=== PATIENT | female | born 2005 | race Caucasian/White ===

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

== ENCOUNTER 2024-02-18 00:50 | Inpatient (IN) | payer MEDICAID, SELFPAY ==
[2024-02-17 23:23] VITALS: BP 119/77; PULSE 91; TEMP 36.6
[2024-02-17 23:34] VITALS: BMI 35.7
[2024-02-17 23:40] VITALS: BP 110/67; PULSE 90
[2024-02-17 23:50] LABS: Nitrazine Paper, PH Positive
[2024-02-18] VITALS (46 sets, daily range): BP systolic 94–136; BP diastolic 46–96; PULSE 72–117; RESP 16; TEMP 36.5–37.1; O2SAT 97–100
[2024-02-18] MEDS: miSOPROStol 100 mcg tablet 25 MCG SUBLINGUAL (00:16)
[2024-02-18 00:41] LABS: Basophils % 0.2 %; Eosinophils # 0.2 10^3/uL (0.0-0.8); Eosinophils % 1.6 %; Hematocrit 30.5 % (36-47); Lymphocytes % 22.1 %; Mean Corpuscular HGB Conc 32.1 g/dL (30-55); Mean Corpuscular Hemoglobin 28.1 pg (27-33); Mean Corpuscular Volume 87.4 fl (85-98); Monocytes # 0.7 10^3/uL (0.2-0.9); Neutrophils # 6.17 10^3/uL (1.8-8.0); Neutrophils % 66.9 %; Nucleated Red Blood Cells % 0 %; Platelet Count 171 10^3/cmm (157-399); Red Blood Count 3.49 10^6/uL (3.85-5.65); Red Cell Distribution Width 13.4 % (12.1-15.1); White Blood Count 9.23 10^3/uL (4.5-13.0)
[2024-02-18] MEDS: lactated ringers 1,000 ML 999 ML IV (02:25)
--- NOTE | 2024-02-18 03:35 | P.ANESUD_ITS ---
Pre-Anesthetic Update Pre-Anesthetic Assessment: Date of Surgery/Procedure: 02/18/24 Preop Ashlyn gnosis: intrauterine Proposed Procedure: labor epidural Any changes to Pre-Anesthetic Assessment?: No Last Intake: 2230 Labs Last 48hrs: Short CBC 02/18/24 Range/Units 00:01 WBC 9.23 (4.5-13.0) 10^3/ uL Hgb 9.80 L (12.4-14.8) g/dL Hct 30.5 L (36-47) % MCV 87.4 (85-98) fl Plt Count 171 (157-399) 10^3/c mm Neut % (Auto) 66.9 % Neut # (Auto) 6.17 (1.8-8.0) 10^3/u L Blood Bank 02/18/24 00:01 Blood Type O Positive Rho(D) Type Rh positive Antibody Screen Negative Vitals: Temperature 97.9 F 02/17/24 23:23 Temperature Source Temporal Artery S can 02/17/24 23:23 Pulse Rate 72 02/18/24 03:51 Blood Pressure 111/56 02/18/24 03:51 Pulse Oximetry 100 02/18/24 03:49 Exam: Pre-Anes Outpt Exam: alert, oriented x 3 and regular rate & rhythm Cardiac Studies: No Data to Display Anesthesia Procedures Epidural: Time Out Performed: Yes Consents Signed: Procedure Consent Consent: requested by attending/covering physician, from patient, risks and benefits reviewed and patient agrees to proceed Lumbar Level: L4-L5 Epidural position: sitting Epidural procedure: sterile prep of area, 1% lidocaine to numb the area, 18 g needle, negative for paresthesia passed, neg for paresthesia, test dose given, 1.5% xylocaine 1:200k epi, 0.2% Ropivacaine bolus ml (5), placed PCEA, no systemic response, sterile dressing applied, L.U.D. no apparent complications and 0.2% Ropiavacaine @ mls/hr (13) Additional Comments: JOHN at 6cm, catheter easily threaded to 5cm in the space. Pt educated on CRAFT WORKER and reporting decreased pain with contractions.
[2024-02-18] MEDS: ROPivacaine syringe 100 MG/50 ML SYRINGE 10 MG EPIDURAL (03:46)
[2024-02-18] MEDS: dextrose 5%-lactated ringers 1,000 ML 125 ML IV (04:38)
[2024-02-18] MEDS: oxytocin 30 UNIT/500 ML BAG 600 UNIT IV (05:58)
--- NOTE | 2024-02-18 06:14 | PM.OPHPUD ---
Labor & Delivery H&P Update Date of Procedure: February 18, 2024 Date H&P Performed: 02/08/24 Changes to previous documentation: Spontaneous rupture membranes. Admission Diagnosis: 18-year-old 3 para 0-0-2-0 at 39 weeks and 2 days estimated gestational age Preop diagnosis: intrauterine Planned procedure: Vaginal delivery Other information: The patient is a 18-year-old woman who had spontaneous rupture membranes shortly before arriving at the hospital. Her prior to that point had been relatively unremarkable. She was GBS negative. She passed her glucose screen. Her blood type is O+. Her antibody screen is negative. She is rubella immune. The remainder of her infectious disease profile is within normal limits. Related Problem List Diagnoses (1) 39 weeks gestation of : (2) Spontaneous rupture of membranes: A&P Assessment and plan (1) 39 weeks gestation of : I anticipate routine labor and spontaneous vaginal delivery. Status: Acute (2) Spontaneous rupture of membranes: Status: Acute
--- NOTE | 2024-02-18 06:19 | PM.DELIVERY ---
Delivery Note: Date of delivery: February 18, 2024 Pre-delivery diagnoses: 18-year-old 3 para 0-0-2-0 at 39 weeks estimated gestational age with spontaneous rupture membranes Post-delivery diagnoses: Status post spontaneous vaginal delivery Procedure: Spontaneous vaginal delivery Delivering Physician: Ankur Simmons Estimated blood loss (mL): 75 Pre-Delivery Course: The patient presented to the hospital with spontaneous rupture membranes that occurred just before arriving at the hospital. Total time of rupture membranes was around 7 hours prior to delivery. History History History 3 Term 1 0 Miscarriages/Ectopic 2 Living Children 1 A&P Assessment and plan (1) Spontaneous vaginal delivery: I anticipate routine care. (2) 39 weeks gestation of : (3) Spontaneous rupture of membranes: Coding Level of Care Code Acute Code for Chg Fwd Diagnoses Spontaneous vaginal delivery O80 39 weeks gestation of Z3A.39 Spontaneous rupture of membranes
[2024-02-18] MEDS: PRENATAL VIT NO.130/IRON/FOLIC 1 EACH TABLET PO (10:01)
[2024-02-18] MEDS: ibuprofen 800 mg tablet PO ×3 (10:01→20:14)
[2024-02-18] MEDS: docusate sodium 100 mg Capsule PO ×2 (10:01→20:14)
[2024-02-18] MEDS: lanolin oint 7 gm 1 APPLIC TOPICAL (20:14)
[2024-02-18 21:06] LABS: Hematocrit 27.9 % (36-47); Mean Corpuscular HGB Conc 31.9 g/dL (30-55); Mean Corpuscular Hemoglobin 28.1 pg (27-33); Mean Platelet Volume 13.2 fL (7.4-10.4); Platelet Count 168 10^3/cmm (157-399); Red Blood Count 3.17 10^6/uL (3.85-5.65); Red Cell Distribution Width 13.6 % (12.1-15.1); White Blood Count 12.21 10^3/uL (4.5-13.0)
[2024-02-19] MEDS: HYDROcodone-acetaminophen 5-325 mg Tablet PO (03:25)
[2024-02-19 03:30] VITALS: BP 107/72; PULSE 94; RESP 16; TEMP 36.8; O2SAT 98
[2024-02-19] MEDS: ibuprofen 800 mg tablet PO (08:23)
[2024-02-19] MEDS: docusate sodium 100 mg Capsule PO (08:23)
[2024-02-19] MEDS: PRENATAL VIT NO.130/IRON/FOLIC 1 EACH TABLET PO (08:23)
[2024-02-19 08:34] VITALS: BP 116/70; PULSE 98; RESP 15; TEMP 36.6; TEMP 36.7; O2SAT 98
--- NOTE | 2024-02-19 09:46 | PM.OBGYDC ---
Discharge Providers CREPE LAMINATOR OPERATOR Date of Admission: 02/18/24 00:50 Date of Discharge: 02/19/24 Attending Provider at Admission: Ankur Simmons MD Attending Provider at Discharge: Ankur Simmons MD Primary Care Provider: ZION Scott Diagnoses at Discharge Discharge Diagnosis (1) Spontaneous vaginal delivery: Status: Acute (2) 39 weeks gestation of : Status: Acute (3) Spontaneous rupture of membranes: Status: Acute Reason for Visit Reason for Visit: Possible ROM at 2230 Hospital Course Hospital Course The patient presented to the hospital with spontaneous rupture membranes. She was placed on Cytotec 25 mcg x 1. An epidural was placed. She progressed to complete and had an unremarkable vaginal delivery. Her course was also unremarkable. Her bleeding was within normal limits. Her pain was well-controlled. She breast-fed well. Information Peripartum Data: Delivery Method: Vaginal Physical Exam Narrative: The patient is alert. She appears comfortable. Her heart has a regular rate and rhythm with no murmurs appreciated. Lungs are clear to auscultation bilaterally. Her fundus is firm and below the umbilicus. Urinary Catheter Management: Joiner Latex: Cath Placed During This Visit: yes Urinary Catheter Date of Insertion: 02/18/24 Urinary Catheter Time of Insertion: 04:13 History History History 3 Term 1 0 Miscarriages/Ectopic 2 Living Children 1 Discharge Data Studies Completed and Pending Laboratory Results WBC 12.21 10^3/uL (4.5-13.0) 02/18/24 19:25 RBC 3.17 10^6/uL (3.85-5.65) L 02/18/24 19:25 Hgb 8.90 g/dL (12.4-14.8) L 02/18/24 19:25 Hct 27.9 % (36-47) L 02/18/24 19:25 MCV 88.0 fl (85-98) 02/18/24 19:25 MCH 28.1 pg (27-33) 02/18/24 19:25 MCHC 31.9 g/dL (30-55) 02/18/24 19:25 RDW 13.6 % (12.1-15.1) 02/18/24 19:25 Plt Count 168 10^3/cmm (157-399) 02/18/24 19:25 MPV 13.2 fL (7.4-10.4) H 02/18/24 19:25 Neut % (Auto) 66.9 % 02/18/24 00:01 Lymph % (Auto) 22.1 % 02/18/24 00:01 [place] % (Auto) 8.0 % 02/18/24 00:01 Eos % (Auto) 1.6 % 02/18/24 00:01 Baso % (Auto) 0.2 % 02/18/24 00:01 Neut # (Auto) 6.17 10^3/uL (1.8-8.0) 02/18/24 00:01 Lymph # (Auto) 2.0 10^3/uL (1.5-6.5) 02/18/24 00:01 [place] # (Auto) 0.7 10^3/uL (0.2-0.9) 02/18/24 00:01 Eos # (Auto) 0.2 10^3/uL (0.0-0.8) 02/18/24 00:01 Baso # (Auto) 0.0 10^3/uL (0.0-0.1) 02/18/24 00:01 Nucleated RBC % (auto) 0 % 02/18/24 00:01 Nucleated RBCs # 0.0 /100WBC 02/18/24 00:01 Fluid pH (paper) Positive H 02/17/24 23:25 Blood Type O Positive 02/18/24 00:01 Rho(D) Type Rh positive 02/18/24 00:01 Antibody Screen Negative 02/18/24 00:01 Vitals Last Vital Signs Temp 98.0 F 02/19/24 08:34 Pulse 98 02/19/24 08:34 Resp 15 02/19/24 08:34 BP 116/70 02/19/24 08:34 Pulse Ox 98 02/19/24 08:34 O2 Del Method Room Air 02/19/24 08:34 Results Labs OB ([facility]): Obstetrics US 06/01/22 Blood Type O Positive 02/18/24 Antibody Screen Negative 02/18/24 Hct 27.9 % (36-47) L 02/18/24 Hgb 8.90 g/dL (12.4-14.8) L 02/18/24 Rho(D) Type Rh positive 02/18/24 Plt Count 168 10^3/cmm (157-399) 02/18/24 TSH 2.63 uIU/mL (0.27-4.20) 10/26/22 FSH 5.9 mIU/mL 10/26/22 Ser , Semi-Qnt 1468.00 mIU/mL 06/16/23 Prolactin 10.37 ng/mL (4.8-23.3) 10/26/22 Discharge Plan Discharge Patient Disposition: Home Condition: Stable Prescriptions: New ibuprofen 800 mg Tablet 800 mg PO TID Qty: 45 0RF Vitamin 27 mg iron- 800 mcg Tablet 1 tab PO DAILY Qty: 90 0RF Discharge Orders: Discharge Order (Routine); Ordered 02/19/24 Ordered By: Ankur Simmons Referrals: Keira Alanis MD [Physician] - 6 Weeks Discharge Diet: Usual diet Discharge Activity: Limit activity as instructed Patient Instructions: Depression (DC), Opioid Safety (DC), Preeclampsia and Eclampsia After Delivery (GEN), Hemorrhage (DC), OB Discharge Report, OB Food/Drug Interaction Guide, OB Care at Home, Opioid Safety, OB Vaginal Deliveries, Abnormal Bleeding Discharge Attestations CREPE LAMINATOR OPERATOR Time Spent in Discharge Care*: less than 30 min Coding Level of Care Code Acute Code for Chg Fwd Diagnoses Spontaneous vaginal delivery O80 39 weeks gestation of Z3A.39 Spontaneous rupture of membranes
[2024-02-19 12:07] VITALS: BP 140/90; PULSE 102; RESP 17; TEMP 36.6; O2SAT 97
--- NOTE | 2024-02-19 14:26 | ANE.PACU2 ---
Inpatient post-anesthesia follow up: Airway intact: Yes Vital signs: Temperature 98 F Pulse Rate 102 Respiratory Rate 17 Blood Pressure 140/90 Pulse Oximetry 97 Oxygen Delivery Me thod Room Air Oxygen Flow Rate Fraction of Inspir ed Oxygen Hydration adequate: Yes Nausea and vomiting: No Pain level: 1 Mental status: Baseline Epidural Start/End: Epidural Start Date: 02/18/24 Epidural Start Time: 03:30 Epidural End Date: 02/18/24 Epidural End Time: 10:00
== END 2024-02-19 12:30 | disposition home or self-care (01) | DRG 807 ==
LOC: OPOB 00:50 → OBGYN 00:50
PROVIDERS: Absent Provider Family Medicine; Admitting Provider Family Medicine; PCP Nurse Practitioner Family; Visit Provider Family Medicine
DX: O80 Encounter for full-term uncomplicated delivery (principal); Z37.0 Single live birth; Z3A.39 39 weeks gestation of pregnancy
CPT/HCPCS: 36415; 51702; 59025; 59409; 83986; 85025; 85027; 86850; 86900; 99211; J2590; J2795; J7120; J7121

== ENCOUNTER 2024-03-22 03:30 | Emergency (ER) | payer MEDICAID, SELFPAY ==
[2024-03-22 03:32] VITALS: BP 123/76; PULSE 69; RESP 18; TEMP 36.8; O2SAT 99; BMI 30.7
--- NOTE | 2024-03-22 03:32 | ECG_ITS ---
[facility] Test Date: 2024-03-22 Pat Name: Susanne Franklin Department: Room: Gender: Female Proposal Editor: : 2005 Requested By: Walter Perez Order Number: [id number] Andrea MD: Ladarius Dior M.D. Measurements Intervals [place] Rate: 57 P: 42 IL: 186 QRS: 75 QRSD: 80 T: 70 QT: 368 QTc: 359 Interpretive Statements SINUS BRADYCARDIA WITH SINUS ARRHYTHMIA POSSIBLE RIGHT VENTRICULAR CONDUCTION DELAY [RSR (QR) IN V1/V2] No previous ECG available for comparison Electronically Signed On 03-22-2024 22:21:55 CDT by Ladarius Dior M.D. [email or web address]
--- NOTE | 2024-03-22 03:40 | XRR_ITS ---
PROCEDURE INFORMATION: Exam: XR Chest Exam date and time: 03/22/2024 3:48 AM Age: 18 years old Clinical indication: Angina; Additional info: Chest pain TECHNIQUE: Imaging protocol: Radiologic exam of the chest. Views: 1 view. COMPARISON: CR XR acute abdomen series [id number] 04/12/2018 10:56 AM FINDINGS: Lungs: Unremarkable. No consolidation. Pleural spaces: Unremarkable. No pleural effusion. No pneumothorax. Heart/Mediastinum: Unremarkable. No cardiomegaly. Bones/joints: Unremarkable. XR/XR chest 1V portable [id number] IMPRESSION: No acute findings.
--- NOTE | 2024-03-22 03:50 | ED_ITS ---
HPI - Chest Pain 2 General: Chief Complaint: Chest Pain Stated Complaint: cp and back pain History of Present Illness: Patient presents to the ER for evaluation of low substernal chest pain/epigastric pain. Started about 1:00 this morning. Patient is currently rating it 9 out of 10. She did not take anything for the pain, she denies any nausea vomiting shortness of breath diaphoresis. Patient did not give approximately 1 month ago. Denies any trauma or injury. Review of Systems 2 General: Reports: 10 or more systems reviewed and unremarkable except in HPI and below PFSH ED 2 PFSH: Medical History No pertinent past medical history Neg hx: HTN, DM, Thyroid, DVT/PE PCP: None Surgical History No pertinent past surgical history Family History Father Hypertension Family/Other Thyroid disease Maternal side Denies family history of Colon cancer Ovarian cancer Diabetes Breast cancer Cancer Uterine cancer Stroke Physical Exam 2 Const: COMMON NORMALS: no acute distress, average body habitus, patient oriented x3, no limitations, healthy appearing, alert and well nourished HENMT: COMMON NORMALS: normocephalic, atraumatic, hearing grossly normal bilaterally, external ears normal, Normal external nose present and moist oral mucous membranes HEAD & SCALP: normocephalic and atraumatic NOSE: Normal external nose present EXTERNAL EAR: Yes external ears normal Neck/C-Spine: COMMON NORMALS: no JVD Chest: COMMONS NORMALS: normal inspection of the chest and normal palpation of entire chest wall Resp: COMMON NORMALS: normal respiratory effort, No retractions, No use of accessory muscles and clear to auscultation bilaterally AUSCULTATION: clear to auscultation bilaterally Cardio: COMMON NORMALS: no JVD, regular rate, regular rhythm, S1 normal heart sound present, S2 normal heart sound present, No gallops present (Cardio), No clicks present (Cardio), No murmurs present (Cardio) and No rub (Cardio) R ATE: regular rate RHYTHM: regular rhythm HEART SOUNDS: S1 normal heart sound present and S2 normal heart sound present GI: COMMON NORMALS: Normal to inspection, nondistended, normoactive bowel sounds present, Soft to palpation, No hepatosplenomegaly present and no masses; negative for non-tender (Tender over epigastric region reproduces pain) P ALPATION: Yes Soft to palpation and Yes No hepatosplenomegaly present Neuro: COMMON NORMALS: patient oriented x3 SENSORIUM/ORIENTATION: Yes alert Course 2 Vital Signs: Vital signs: Vital Signs Temperature 98.2 F 03/22/24 03:32 Pulse Rate 65 03/22/24 04:46 Respiratory Rate 21 H 03/22/24 04:46 Blood Pressure 105/66 03/22/24 04:46 Pulse Oximetry 98 03/22/24 04:46 Oxygen Delivery Me thod Room Air 03/22/24 03:32 MDM - Chest Pain Medical Decision Making Patient presents to the ER with substernal epigastric pain radiating to her back. Patient was worked up in a standard chest pain fashion with all her labs and x-ray being negative. Patient was given initially GI cocktail which she said helped only a little bit. Then patient was given Toradol and Pepcid. Patient be discharged home to follow-up with her PCP. Differential Diagnosis Unlikely acute massive pulmonary embolism, acute respiratory failure, acute myocardial infarction, cardiac arrest or sudden cardiac Medical Records I reviewed the patient's medical records. Lab Data I reviewed the patient's lab results. 03/22/24 03:48 03/22/24 03:48 Radiology Impressions Chest X-Ray 03/22/24 03:40 IMPRESSION: No acute findings. Laboratory Results WBC 5.01 10^3/uL (4.5-13.0) 03/22/24 03:48 RBC 4.33 10^6/uL (3.85-5.65) 03/22/24 03:48 Hgb 11.80 g/dL (12.4-14.8) L 03/22/24 03:48 Hct 38.0 % (36-47) 03/22/24 03:48 MCV 87.8 fl (85-98) 03/22/24 03:48 MCH 27.3 pg (27-33) 03/22/24 03:48 MCHC 31.1 g/dL (30-55) 03/22/24 03:48 RDW 13.9 % (12.1-15.1) 03/22/24 03:48 Plt Count 213 10^3/cmm (157-399) 03/22/24 03:48 MPV 12.2 fL (7.4-10.4) H 03/22/24 03:48 Neut % (Auto) 42.1 % 03/22/24 03:48 Lymph % (Auto) 44.1 % 03/22/24 03:48 [place] % (Auto) 8.2 % 03/22/24 03:48 Eos % (Auto) 5.0 % 03/22/24 03:48 Baso % (Auto) 0.4 % 03/22/24 03:48 Neut # (Auto) 2.11 10^3/uL (1.8-8.0) 03/22/24 03:48 Lymph # (Auto) 2.2 10^3/uL (1.5-6.5) 03/22/24 03:48 [place] # (Auto) 0.4 10^3/uL (0.2-0.9) 03/22/24 03:48 Eos # (Auto) 0.3 10^3/uL (0.0-0.8) 03/22/24 03:48 Baso # (Auto) 0.0 10^3/uL (0.0-0.1) 03/22/24 03:48 Nucleated RBC % (auto) 0 % 03/22/24 03:48 Nucleated RBCs # 0.0 /100WBC 03/22/24 03:48 Sodium 143 mmol/L (136-145) 03/22/24 03:48 Potassium 3.7 mmol/L (3.5-5.1) 03/22/24 03:48 Chloride 106 mmol/L (98-107) 03/22/24 03:48 Carbon Dioxide 24 mmol/L (22-29) 03/22/24 03:48 Anion Gap 16.7 (5-19) 03/22/24 03:48 BUN 14 mg/dL (6-20) 03/22/24 03:48 Creatinine 0.7 mg/dL (0.5-0.9) 03/22/24 03:48 GFR Calculation 107.8 mL/min (90-130) 03/22/24 03:48 Glucose 94 mg/dL (65-115) 03/22/24 03:48 Calculated Osmolality 296 mOsm/kg (285-295) H 03/22/24 03:48 Calcium 9.0 mg/dL (8.5-10.5) 03/22/24 03:48 Total Bilirubin 0.2 mg/dL (0.15-1.2) 03/22/24 03:48 AST 21 U/L (0-32) 03/22/24 03:48 ALT 31 U/L (0-33) 03/22/24 03:48 Alkaline Phosphatase 113 U/L (35-105) H 03/22/24 03:48 Troponin T Baseline 8 ng/L (0-10) 03/22/24 03:48 Total Protein 6.5 g/dL (6.6-8.7) L 03/22/24 03:48 Albumin 4.0 g/dL (3.5-5.2) 03/22/24 03:48 Globulin 2.5 g/dL (1.3-4.6) 03/22/24 03:48 All radiology interpretation(s) finalized by discharge Discharge Plan Discharge Patient Disposition: Home Clinical Impression: Abdominal pain, epigastric Acute thoracic back pain Qualifiers: Back pain laterality: bilateral Qualified Code(s): M54.6 - Pain in thoracic spine Condition: Stable Prescriptions: New Pepcid 40 mg tablet 40 mg PO BID Qty: 30 0RF cyclobenzaprine 5 mg tablet 5 mg PO TID PRN (Reason: muscle spasm) Qty: 14 0RF No Action ibuprofen 800 mg Tablet 800 mg PO TID Qty: 45 0RF Vitamin 27 mg iron- 800 mcg Tablet 1 tab PO DAILY Qty: 90 0RF Discharge Orders: Discharge ED (Routine); Ordered 03/22/24 Ordered By: Walter Perez Referrals: Marci Wadsworth FNP [Primary Care Provider] - 1 week Patient Instructions: Abdominal Pain (ED), Back Pain (ED) Activity Restrictions/Additional Instructions: Here workup in ER did not show any acute cause of your chest pain it is felt to be more epigastric stomach pain and back pain. You are given a GI cocktail, Toradol and Pepcid for your discomfort. You are prescribed cyclobenzaprine and Pepcid. Please take your medicine as directed. Please follow-up with your primary care doc within the next 7 days for further evaluation and treatment. Coding Level of Care Code ED Clinical Neuropsychologist for Davian Cruz
[2024-03-22 03:52] LABS: Basophils % 0.4 %; Eosinophils # 0.3 10^3/uL (0.0-0.8); Lymphocytes # 2.2 10^3/uL (1.5-6.5); Lymphocytes % 44.1 %; Mean Corpuscular HGB Conc 31.1 g/dL (30-55); Mean Corpuscular Hemoglobin 27.3 pg (27-33); Mean Corpuscular Volume 87.8 fl (85-98); Mean Platelet Volume 12.2 fL (7.4-10.4); Monocytes # 0.4 10^3/uL (0.2-0.9); Monocytes % 8.2 %; Neutrophils # 2.11 10^3/uL (1.8-8.0); Neutrophils % 42.1 %; Nucleated Red Blood Cells % 0 %; Platelet Count 213 10^3/cmm (157-399); Red Blood Count 4.33 10^6/uL (3.85-5.65); Red Cell Distribution Width 13.9 % (12.1-15.1); White Blood Count 5.01 10^3/uL (4.5-13.0)
[2024-03-22 04:15] LABS: Troponin(5th) Baseline 8 ng/L (0-10)
[2024-03-22] MEDS: lidocaine 2% viscous 15 ML, aluminum-mag hydrox-simethicon 30 ML, sucralfate oral liq 1 GM PO (04:21)
[2024-03-22 04:24] VITALS: BP 109/73; PULSE 69; O2SAT 98
[2024-03-22 04:28] LABS: Alanine Aminotransferase 31 U/L (0-33); Alkaline Phosphatase 113 U/L (35-105); Anion Gap 16.7 (5-19); Aspartate Amino Transferase 21 U/L (0-32); Blood Urea Nitrogen 14 mg/dL (6-20); Carbon Dioxide 24 mmol/L (22-29); Chloride 106 mmol/L (98-107); Creatinine Clr Calc Pharmacy 138.2884; Globulin 2.5 g/dL (1.3-4.6); Glomerular Filtration Rate 107.8 mL/min (90-130); Glucose 94 mg/dL (65-115); Osmolality Calculated 296 mOsm/kg (285-295); Potassium 3.7 mmol/L (3.5-5.1); Sodium 143 mmol/L (136-145); Total Bilirubin 0.2 mg/dL (0.15-1.2); Total Protein 6.5 g/dL (6.6-8.7)
[2024-03-22 04:46] VITALS: BP 105/66; PULSE 65; RESP 21; O2SAT 98
--- NOTE | 2024-03-22 04:55 | PC.NURSE ---
Verbal order taken from Dr Perez for dose change on Toradol IM.
[2024-03-22] MEDS: ketorolac 60 mg/2 mL INJ IM (05:00)
[2024-03-22] MEDS: famotidine 20 mg Tablet 40 MG PO (05:01)
[2024-03-22 05:25] VITALS: BP 116/81; PULSE 63; RESP 22; O2SAT 96
--- NOTE | 2024-03-22 05:27 | PC.NURSE ---
Patient stated that pain improved prior to discharge. Patient was sleeping at time of pain assessment.
== END 2024-03-22 05:30 | disposition home or self-care (01) ==
PROVIDERS: Emergency Provider Emergency Medicine; PCP Nurse Practitioner Family
DX: R10.13 Epigastric pain (principal); M54.6 Pain in thoracic spine
CPT/HCPCS: 36415; 71045; 80053; 84484; 85025; 93005; 96372; 96374; 99285; J1885

== ENCOUNTER 2024-06-20 04:10 | Emergency (ER) | payer MEDICAID, SELFPAY ==
--- NOTE | 2024-06-20 04:11 | ECG_ITS ---
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 Measurements Intervals [place] Rate: 62 P: 59 OK: 198 QRS: 71 QRSD: 90 T: 73 QT: 389 QTc: 396 Interpretive Statements SINUS RHYTHM POSSIBLE LEFT ATRIAL ENLARGEMENT [-0.1mV P-WAVE IN V1/V2] POSSIBLE RIGHT VENTRICULAR CONDUCTION DELAY [RSR (QR) IN V1/V2] Compared to ECG 03/22/2024 03:32:04 Sinus bradycardia no longer present Sinus arrhythmia no longer present Electronically Signed On 06-21-2024 01:10:59 CDT by Ladarius Dior M.D. [email or web address]
[2024-06-20 04:13] VITALS: BP 122/82; PULSE 67; RESP 16; TEMP 36.7; O2SAT 100; BMI 27.4
--- NOTE | 2024-06-20 04:17 | XRR_ITS ---
PROCEDURE INFORMATION: Exam: XR Chest Exam date and time: 06/20/2024 4:27 AM Age: 18 years old Clinical indication: Pain; Chest pressure; Additional info: Chest pain TECHNIQUE: Imaging protocol: Radiologic exam of the chest. Views: 1 view. COMPARISON: CR XR chest 1V portable [id number] 03/22/2024 3:48 AM FINDINGS: Lungs: Unremarkable. No consolidation. Pleural spaces: Unremarkable. No pleural effusion. No pneumothorax. Heart/Mediastinum: Unremarkable. No cardiomegaly. Bones/joints: Unremarkable. XR/XR chest 1V portable [id number] IMPRESSION: No acute findings.
[2024-06-20 04:28] LABS: Basophils % 0.8 %; Eosinophils # 0.4 10^3/uL (0.0-0.8); Eosinophils % 7.5 %; Hematocrit 39.2 % (36-47); Lymphocytes # 2.1 10^3/uL (1.5-6.5); Lymphocytes % 40.4 %; Mean Corpuscular HGB Conc 30.9 g/dL (30-55); Mean Corpuscular Hemoglobin 26.1 pg (27-33); Mean Corpuscular Volume 84.5 fl (85-98); Mean Platelet Volume 11.5 fL (7.4-10.4); Monocytes # 0.3 10^3/uL (0.2-0.9); Monocytes % 6.7 %; Neutrophils # 2.25 10^3/uL (1.8-8.0); Neutrophils % 44.4 %; Nucleated Red Blood Cells % 0 %; Platelet Count 241 10^3/cmm (157-399); Red Blood Count 4.64 10^6/uL (3.85-5.65); Red Cell Distribution Width 13.2 % (12.1-15.1); White Blood Count 5.07 10^3/uL (4.5-13.0)
--- NOTE | 2024-06-20 04:29 | ED_ITS ---
HPI - Chest Pain 2 General: Chief Complaint: Chest Pain Stated Complaint: CP Time Seen by Provider: 06/20/24 04:13 History of Present Illness: 18-year-old female who has been having i ssues with chest pain and epigastric pain for some time now. She is seeing her primary care. She says she is not having this at night often. She is been taking Flexeril for this and usually it helps but it did not tonight. She has a 4-month-old so she came to the emergency room by herself. No fevers. No cough. No altered mental status. No nausea or vomiting. Related Data Previous Rx's Medication Instructions Recorded ibuprofen 800 mg tablet 800 mg PO TID #45 tabs 02/19/24 vits no.130-ferrous fum 1 tab PO DAILY #90 tabs 02/19/24 27 mg iron-folic acid 800 mcg tablet ( Vitamin) cyclobenzaprine 5 mg tablet 5 mg PO TID PRN muscle spasm #14 03/22/24 tabs famotidine 40 mg tablet (Pepcid) 40 mg PO BID #30 tabs 03/22/24 Allergies Allergy/AdvReac Type Severity Reaction Status Date / Time No Known Allergies Allergy Verified 03/22/24 03:38 Review of Systems 2 Narrative: Constitutional symptoms: Negative except as documented in HPI. Skin symptoms: Negative except as documented in HPI. Eye symptoms: Negative except as documented in HPI. ENMT symptoms: Negative except as documented in HPI. Respiratory symptoms: Negative except as documented in HPI. Cardiovascular symptoms: Negative except as documented in HPI. Gastrointestinal symptoms: Negative except as documented in HPI. Genitourinary symptoms: Negative except as documented in HPI. Musculoskeletal symptoms: Negative except as documented in HPI. Neurologic symptoms: Negative except as documented in HPI. Psychiatric symptoms: Negative except as documented in HPI. Endocrine symptoms: Negative except as documented in HPI. PFSH ED 2 PFSH: Medical History No pertinent past medical history Neg hx: HTN, DM, Thyroid, DVT/PE PCP: None Surgical History No pertinent past surgical history Family History Father Hypertension Family/Other Thyroid disease Maternal side Denies family history of Colon cancer Ovarian cancer Diabetes Breast cancer Cancer Uterine cancer Stroke Physical Exam 2 Narrative: EXAM NARRATIVE: General: Alert, no acute distress. Skin: Warm, dry. Head: Normocephalic, atraumatic. Neck: Supple, trachea midline. Eye: Extraocular movements are intact. Ears, nose, mouth and throat: mucosa moist. Cardiovascular: Regular, Normal peripheral perfusion. Respiratory: Lungs are clear to auscultation, respirations are non-labored, breath sounds are equal, Symmetrical chest wall expansion. Gastrointestinal: Soft, Nontender, Non distended Musculoskeletal: Normal ROM, no deformity. Neurological: Alert and oriented, No focal neurological deficit observed. Psychiatric: Cooperative, appropriate mood & affect. Course 2 Vital Signs: Vital signs: Vital Signs Temperature 98.0 F 06/20/24 04:13 Pulse Rate 60 06/20/24 04:53 Respiratory Rate 16 06/20/24 04:53 Blood Pressure 113/79 06/20/24 04:53 Pulse Oximetry 100 06/20/24 04:53 Oxygen Delivery Me thod Room Air 06/20/24 04:13 MDM - Chest Pain Medical Decision Making Differential diagnosis for patient with chest pain includes but is not limited to and based on the above HPI, review of systems and physical exam: Pneumonia. unstable angina. angina. Acute coronary syndrome / [place]. Pulmonary embolism. Costochondritis / musculoskeletal. Pleurisy. Pericarditis. Esophageal spasm. Pancreatis. Cholecystitis. Orders placed to evaluate differential diagnosis based on the above differential, HPI and physical exam EKG: Time 411. Rate 62. Normal sinus rhythm, No ST-T changes, no ectopy, normal IA & QRS intervals, This was reviewed and interpreted by myself the ER physician at 4:15 AM. Chest x-ray: No acute process. No infiltrate. No pneumothorax. This was reviewed and interpreted by myself the ER physician. Lab Review: Laboratory results were reviewed and interpreted by myself the emergency room physician. No leukocytosis or anemia. No renal failure. I reviewed the patient's medical record. Reexamination: Patient remained stable. No increased work of breathing. No altered mental status. No focal motor deficits. Assessment and plan: Noncardiac chest pain ?Home with a dose of Ativan to see if this does not help. Continue follow-up with PCP - Discharged home - Discussed plan with patient. Answered any questions. - Evaluation and treatment of this problem were appropriate in the emergency setting. Lab Data 06/20/24 04:23 06/20/24 04:23 Laboratory Results WBC 5.07 10^3/uL (4.5-13.0) 06/20/24 04:23 RBC 4.64 10^6/uL (3.85-5.65) 06/20/24 04:23 Hgb 12.10 g/dL (12.4-14.8) L 06/20/24 04:23 Hct 39.2 % (36-47) 06/20/24 04:23 MCV 84.5 fl (85-98) L 06/20/24 04:23 MCH 26.1 pg (27-33) L 06/20/24 04:23 MCHC 30.9 g/dL (30-55) 06/20/24 04:23 RDW 13.2 % (12.1-15.1) 06/20/24 04:23 Plt Count 241 10^3/cmm (157-399) 06/20/24 04:23 MPV 11.5 fL (7.4-10.4) H 06/20/24 04:23 Neut % (Auto) 44.4 % 06/20/24 04:23 Lymph % (Auto) 40.4 % 06/20/24 04:23 [place] % (Auto) 6.7 % 06/20/24 04:23 Eos % (Auto) 7.5 % 06/20/24 04:23 Baso % (Auto) 0.8 % 06/20/24 04:23 Neut # (Auto) 2.25 10^3/uL (1.8-8.0) 06/20/24 04:23 Lymph # (Auto) 2.1 10^3/uL (1.5-6.5) 06/20/24 04:23 [place] # (Auto) 0.3 10^3/uL (0.2-0.9) 06/20/24 04:23 Eos # (Auto) 0.4 10^3/uL (0.0-0.8) 06/20/24 04:23 Baso # (Auto) 0.0 10^3/uL (0.0-0.1) 06/20/24 04:23 Nucleated RBC % (auto) 0 % 06/20/24 04:23 Nucleated RBCs # 0.0 /100WBC 06/20/24 04:23 Sodium 142 mmol/L (136-145) 06/20/24 04:23 Potassium 3.7 mmol/L (3.5-5.1) 06/20/24 04:23 Chloride 109 mmol/L (98-107) H 06/20/24 04:23 Carbon Dioxide 24 mmol/L (22-29) 06/20/24 04:23 Anion Gap 12.7 (5-19) 06/20/24 04:23 BUN 14 mg/dL (6-20) 06/20/24 04:23 Creatinine 0.6 mg/dL (0.5-0.9) 06/20/24 04:23 GFR Calculation 128.8 mL/min (90-130) 06/20/24 04:23 Glucose 93 mg/dL (65-115) 06/20/24 04:23 Calculated Osmolality 294 mOsm/kg (285-295) 06/20/24 04:23 Calcium 8.7 mg/dL (8.5-10.5) 06/20/24 04:23 Total Bilirubin 0.2 mg/dL (0.15-1.2) 06/20/24 04:23 AST 15 U/L (0-32) 06/20/24 04:23 ALT 11 U/L (0-33) 06/20/24 04:23 Alkaline Phosphatase 104 U/L (35-105) 06/20/24 04:23 Total Protein 6.7 g/dL (6.6-8.7) 06/20/24 04:23 Albumin 4.1 g/dL (3.5-5.2) 06/20/24 04:23 Globulin 2.6 g/dL (1.3-4.6) 06/20/24 04:23 All radiology interpretation(s) finalized by discharge Discharge Plan Discharge Patient Disposition: Home Clinical Impression: Non-cardiac chest pain Condition: Stable Prescriptions: No Action ibuprofen 800 mg Tablet 800 mg PO TID Qty: 45 0RF Vitamin 27 mg iron- 800 mcg Tablet 1 tab PO DAILY Qty: 90 0RF Pepcid 40 mg tablet 40 mg PO BID Qty: 30 0RF cyclobenzaprine 5 mg tablet 5 mg PO TID PRN (Reason: muscle spasm) Qty: 14 0RF Discharge Orders: Discharge ED (Routine); Ordered 06/20/24 Ordered By: Nelda [place] Referrals: Marci Wadsworth FNP [Primary Care Provider] - Discharge Diet: Usual diet Discharge Activity: Increase activity as tolerated Patient Instructions: Noncardiac Chest Pain (ED) Activity Restrictions/Additional Instructions: Thank you for choosing [facility] for your healthcare needs today. Please realize this is an emergency room and that we are providing you with a medical screening exam and this may not be complete and all inclusive of all the testing and or work up that you may need to determine your ailment or severity of your illness. You have been screened and evaluated and felt safe for discharge. Health conditions do change or evolve sometimes and as such it is important that you follow up with your Primary Doctor to be re checked, 3-5 days is a general good time frame for follow up. You are always welcome to return to the ED for re assessment if your symptoms are worsening or you have new concerns Coding Level of Care Code ED Community Recreation Programmer for Davian Cruz
[2024-06-20 04:45] LABS: Alanine Aminotransferase 11 U/L (0-33); Albumin Level 4.1 g/dL (3.5-5.2); Alkaline Phosphatase 104 U/L (35-105); Anion Gap 12.7 (5-19); Aspartate Amino Transferase 15 U/L (0-32); Blood Urea Nitrogen 14 mg/dL (6-20); Calcium 8.7 mg/dL (8.5-10.5); Carbon Dioxide 24 mmol/L (22-29); Chloride 109 mmol/L (98-107); Globulin 2.6 g/dL (1.3-4.6); Glomerular Filtration Rate 128.8 mL/min (90-130); Glucose 93 mg/dL (65-115); Osmolality Calculated 294 mOsm/kg (285-295); Potassium 3.7 mmol/L (3.5-5.1); Sodium 142 mmol/L (136-145); Total Bilirubin 0.2 mg/dL (0.15-1.2); Total Protein 6.7 g/dL (6.6-8.7)
[2024-06-20 04:53] VITALS: BP 113/79; PULSE 60; RESP 16; O2SAT 100
--- NOTE | 2024-06-20 05:00 | PC.NURSE ---
Pt drove herself, she was sent home with atyoav
== END 2024-06-20 04:59 | disposition home or self-care (01) ==
PROVIDERS: Emergency Provider Emergency Medicine; PCP Nurse Practitioner Family
DX: R07.89 Other chest pain (principal)
CPT/HCPCS: 71045; 80053; 85025; 93005; 99285

== ENCOUNTER 2024-07-07 05:49 | Emergency (ER) | payer MEDICAID, SELFPAY ==
[2024-07-07] VITALS (8 sets, daily range): BP systolic 118–121; BP diastolic 79–82; PULSE 68–80; RESP 14–17; TEMP 36.6; O2SAT 97–100; BMI 26.6
[2024-07-07 06:29] LABS: Basophils % 0.8 %; Eosinophils # 0.3 10^3/uL (0.0-0.8); Eosinophils % 7.1 %; Hematocrit 40.1 % (36-47); Lymphocytes # 1.7 10^3/uL (1.5-6.5); Mean Corpuscular HGB Conc 31.4 g/dL (30-55); Mean Corpuscular Hemoglobin 26.8 pg (27-33); Mean Corpuscular Volume 85.1 fl (85-98); Mean Platelet Volume 12.2 fL (7.4-10.4); Monocytes # 0.3 10^3/uL (0.2-0.9); Monocytes % 8.1 %; Neutrophils # 1.61 10^3/uL (1.8-8.0); Neutrophils % 40.7 %; Nucleated Red Blood Cells % 0 %; Platelet Count 211 10^3/cmm (157-399); Red Blood Count 4.71 10^6/uL (3.85-5.65); Red Cell Distribution Width 14.2 % (12.1-15.1); White Blood Count 3.95 10^3/uL (4.5-13.0)
--- NOTE | 2024-07-07 06:49 | ED_ITS ---
HPI - Abdominal Pain 2 General: Chief Complaint: Abdominal Pain Stated Complaint: Rt Side Pain Time Seen by Provider: 07/07/24 06:07 History of Present Illness: 18-year-old female presents to the emerg ency room with complaint of right upper quadrant abdominal pain radiating into her back. She denies any dysuria urgency or frequency. Patient states she has had intermittent right upper quadrant abdominal pain since her last delivery a few months ago. No fever sweats or chills. The only thing she notes that exacerbates it is increased salt intake. She is not associated in her discomfort with significant foods. On July 02 of this year she had a gallbladder ultrasound which did show some thickening of the gallbladder wall but no sign of acute cholecystitis she did have some cholelithiasis. Associated Symptoms: Reports nausea; Denies chills, constipation, diarrhea, dysuria, fever(s), hematochezia, hematemesis and vomiting Related Data Date of Last Menstrual Period: 06/26/24 Previous Rx's Medication Instructions Recorded ibuprofen 800 mg tablet 800 mg PO TID #45 tabs 02/19/24 vits no.130-ferrous fum 1 tab PO DAILY #90 tabs 02/19/24 27 mg iron-folic acid 800 mcg tablet ( Vitamin) cyclobenzaprine 5 mg tablet 5 mg PO TID PRN muscle spasm #14 03/22/24 tabs famotidine 40 mg tablet (Pepcid) 40 mg PO BID #30 tabs 03/22/24 hydrocodone 5 mg-acetaminophen 325 1 tab PO Q6H PRN pain #25 tabs 07/07/24 mg tablet promethazine 25 mg tablet 25 mg PO Q6H PRN nausea and 07/07/24 vomiting #25 tabs Allergies Allergy/AdvReac Type Severity Reaction Status Date / Time No Known Allergies Allergy Verified 03/22/24 03:38 Review of Systems 2 Const: Denies: fever(s) or chills Card: Denies: chest pain Resp: Denies: dyspnea GI: Reports: abdominal pain and nausea; Denies: vomiting, hematemesis, diarrhea, constipation or hematochezia : Denies: dysuria, urinary frequency or urinary urgency Musc: Denies: neck pain or back pain Skin/Breast: Denies: rash PFSH ED 2 PFSH: Medical History No pertinent past medical history Neg hx: HTN, DM, Thyroid, DVT/PE PCP: None Surgical History No pertinent past surgical history Family History Father Hypertension Family/Other Thyroid disease Maternal side Denies family history of Colon cancer Ovarian cancer Diabetes Breast cancer Cancer Uterine cancer Stroke Female Reproductive History: Date of last menstrual period: 06/26/24 Physical Exam 2 Const: GENERAL APPEARANCE: cooperative ORIENTATION/CONSCIOUSNESS: Yes awake, Yes oriented to person, Yes oriented to place and Yes oriented to time HENMT: COMMON NORMALS: normocephalic, atraumatic and hearing grossly normal bilaterally HEAD & SCALP: normocephalic and atraumatic Resp: COMMON NORMALS: normal respiratory effort, No retractions, No use of accessory muscles and clear to auscultation bilaterally AUSCULTATION: clear to auscultation bilaterally Cardio: COMMON NORMALS: regular rate, regular rhythm and No murmurs present (Cardio) RATE: regular rate RHYTHM: regular rhythm GI: COMMON NORMALS: No hepatosplenomegaly present AUSCULTATION: Yes normoactive bowel sounds PALPATION: Yes Tenderness to palpation present (GI) Details: RUQ, No Guarding due to palpation present (GI) and Yes No hepatosplenomegaly present Extremity: COMMON NORMALS: normal to inspection, capillary refill normal, no clubbing, cyanosis or edema, no calf tenderness and no pedal edema Neuro: SENSORIUM/ORIENTATION: Yes oriented to person, Yes oriented to place and Yes oriented to time Skin: COMMON NORMALS: no rashes or lesions noted GENERAL SKIN EXAM: no rashes or lesions noted Course 2 Vital Signs: Vital signs: Vital Signs Temperature 97.9 F 07/07/24 06:08 Pulse Rate 74 07/07/24 09:07 Respiratory Rate 17 07/07/24 08:15 Blood Pressure 121/82 07/07/24 09:07 Pulse Oximetry 98 07/07/24 09:07 Oxygen Delivery Me thod Room Air 07/07/24 06:36 MDM - Abdominal Pain Medical Decision Making Suspect patient has biliary colic secondary to biliary dyskinesia. She does have some cholelithiasis but no thickening of the gallbladder wall no hydrops white count is not elevated and her liver functions are normal. Will set her up for HIDA scan she has a pending appointment with Dr. Harrison on July 16. Gave patient dietary guidelines discussed with her. Also gave her hydrocodone to use for pain as well as promethazine. Lab Data 07/07/24 06:19 07/07/24 06:19 Labs/Radiology: Laboratory Results WBC 3.95 10^3/uL (4.5-13.0) L 07/07/24 06:19 RBC 4.71 10^6/uL (3.85-5.65) 07/07/24 06:19 Hgb 12.60 g/dL (12.4-14.8) 07/07/24 06:19 Hct 40.1 % (36-47) 07/07/24 06:19 MCV 85.1 fl (85-98) 07/07/24 06:19 MCH 26.8 pg (27-33) L 07/07/24 06:19 MCHC 31.4 g/dL (30-55) 07/07/24 06:19 RDW 14.2 % (12.1-15.1) 07/07/24 06:19 Plt Count 211 10^3/cmm (157-399) 07/07/24 06:19 MPV 12.2 fL (7.4-10.4) H 07/07/24 06:19 Neut % (Auto) 40.7 % 07/07/24 06:19 Lymph % (Auto) 43.0 % 07/07/24 06:19 [place] % (Auto) 8.1 % 07/07/24 06:19 Eos % (Auto) 7.1 % 07/07/24 06:19 Baso % (Auto) 0.8 % 07/07/24 06:19 Neut # (Auto) 1.61 10^3/uL (1.8-8.0) L 07/07/24 06:19 Lymph # (Auto) 1.7 10^3/uL (1.5-6.5) 07/07/24 06:19 [place] # (Auto) 0.3 10^3/uL (0.2-0.9) 07/07/24 06:19 Eos # (Auto) 0.3 10^3/uL (0.0-0.8) 07/07/24 06:19 Baso # (Auto) 0.0 10^3/uL (0.0-0.1) 07/07/24 06:19 Nucleated RBC % (auto) 0 % 07/07/24 06:19 Nucleated RBCs # 0.0 /100WBC 07/07/24 06:19 Sodium 140 mmol/L (136-145) 07/07/24 06:19 Potassium 4.1 mmol/L (3.5-5.1) 07/07/24 06:19 Chloride 105 mmol/L (98-107) 07/07/24 06:19 Carbon Dioxide 24 mmol/L (22-29) 07/07/24 06:19 Anion Gap 15.1 (5-19) 07/07/24 06:19 BUN 16 mg/dL (6-20) 07/07/24 06:19 Creatinine 0.6 mg/dL (0.5-0.9) 07/07/24 06:19 GFR Calculation 128.8 mL/min (90-130) 07/07/24 06:19 Glucose 84 mg/dL (65-115) 07/07/24 06:19 Calculated Osmolality 290 mOsm/kg (285-295) 07/07/24 06:19 Calcium 8.6 mg/dL (8.5-10.5) 07/07/24 06:19 Total Bilirubin 0.2 mg/dL (0.15-1.2) 07/07/24 06:19 AST 16 U/L (0-32) 07/07/24 06:19 ALT 10 U/L (0-33) 07/07/24 06:19 Alkaline Phosphatase 120 U/L (35-105) H 07/07/24 06:19 Total Protein 6.9 g/dL (6.6-8.7) 07/07/24 06:19 Albumin 4.3 g/dL (3.5-5.2) 07/07/24 06:19 Globulin 2.6 g/dL (1.3-4.6) 07/07/24 06:19 Lipase 32 U/L (13-60) 07/07/24 06:19 HCG, Qual Negative (Negative) 07/07/24 06:19 Urine Color Yellow (Yellow) 07/07/24 06:32 Urine Appearance Cloudy (CLEAR) A 07/07/24 06:32 Urine pH 5.5 (5-7) 07/07/24 06:32 Ur Specific [place] 1.032 (1.005-1.030) H 07/07/24 06:32 Urine Protein 2+ (Negative) A 07/07/24 06:32 Urine Glucose (UA) Negative (Normal) 07/07/24 06:32 Urine Ketones Negative (Negative) 07/07/24 06:32 Urine Blood Negative (Negative) 07/07/24 06:32 Urine Nitrate Negative (Negative) 07/07/24 06:32 Urine Bilirubin Negative (Negative) 07/07/24 06:32 Urine Urobilinogen 1.0 mg/dL (Negative) 07/07/24 06:32 Ur Leukocyte Esterase Negative (Negative) 07/07/24 06:32 Urine RBC 0-2 /hpf (0-2) 07/07/24 06:32 Urine WBC 11-20 /hpf (0-5) H 07/07/24 06:32 Ur Squamous Epith Cells 11-20 /hpf (0-5) 07/07/24 06:32 Amorphous Sediment Not Reportable 07/07/24 06:32 Urine Bacteria 4+ /hpf (NONE) H 07/07/24 06:32 Hyaline Casts 2.46 /lpf 07/07/24 06:32 All radiology interpretation(s) finalized by discharge Discharge Plan Discharge Patient Disposition: Home Clinical Impression: Biliary colic, Biliary dyskinesia Condition: Stable Prescriptions: New hydrocodone-acetaminophen 5-325 mg tablet 1 tab PO Q6H PRN (Reason: pain) Qty: 25 0RF promethazine 25 mg tablet 25 mg PO Q6H PRN (Reason: nausea and vomiting) Qty: 25 0RF No Action ibuprofen 800 mg Tablet 800 mg PO TID Qty: 45 0RF Vitamin 27 mg iron- 800 mcg Tablet 1 tab PO DAILY Qty: 90 0RF Pepcid 40 mg tablet 40 mg PO BID Qty: 30 0RF cyclobenzaprine 5 mg tablet 5 mg PO TID PRN (Reason: muscle spasm) Qty: 14 0RF Discharge Orders: Discharge ED (Routine); Ordered 07/07/24 Ordered By: Satya Pitt Referrals: Keira Alanis MD [Primary Care Provider] - Discharge Diet: As Directed Discharge Activity: Increase activity as tolerated Patient Instructions: Biliary Colic (ED), Diet for Stomach Ulcers and Gastritis (ED), Abdominal Pain (ED), Biliary Dyskinesia (DC), Opioid Safety, Pain Management Activity Restrictions/Additional Instructions: Thank you for choosing [facility] for your healthcare needs today. It is very important that you follow up as instructed or that you return to the Emergency Department should you have concerns or if your condition changes or worsens in any way. You were seen today with complaints of abdominal pain. Your description of your symptoms are suggestive of biliary colic. Your laboratory tests were normal and the gallbladder ultrasound showed stones but no evidence of acute cholecystitis. Suspect you have biliary dyskinesia this is where your gallbladder does not function right and causes similar symptoms as if it has significant inflammation infection or stones. This can only be confirmed by a nuclear test called a HIDA scan. Will schedule this for you keep your appointment with Dr. Harrison as previously scheduled. You were given diet recommendations for stomach ulcers and gastritis these are also helpful for patient with biliary colic avoiding the foods listed which can frequently trigger your biliary symptoms along with any other foods that you noticed seem to trigger symptoms. You can use the pain and nausea medications as needed. Coding Level of Care Code ED Social Worker Clinical for Davian Cruz
--- NOTE | 2024-07-07 06:53 | USR_ITS ---
PROCEDURE INFORMATION: Exam: US Abdomen, Limited; Right Upper Quadrant Exam date and time: 07/07/2024 7:48 AM Age: 18 years old Clinical indication: Abdominal pain; Localized; Right upper quadrant (ruq); Additional info: Ruq abd pain. No history of recent trauma or surgery is provided. TECHNIQUE: Imaging protocol: Real time ultrasound of the abdomen with image documentation. Limited exam focused on the right upper quadrant. 82image(s) are provided. Other technique: Grayscale, color images are provided. COMPARISON: 1. US gall bladder 16740 07/02/2024 9:01 AM 2. US abdomen limited 30200 04/12/2018 10:22 AM FINDINGS: Liver: The liver measures around 15 cm. The hepatic echotexture is relatively homogeneous. No contour abnormalities are currently appreciated. Gallbladder: There appears to be some trace gallbladder sludge and small gallstone appearance. No interval focal wall thickening or pericholecystic fluid collections are currently appreciated. No sonographic Crowder's sign is currently provided. Biliary ducts: The common bile duct measures 0.5 cm. No echogenic obstructive calculus is appreciated.Distal most, ampullary level evaluation is limited. Pancreas: The pancreas is largely obscured. Right kidney: The right kidney measures 11 x 4.5 x 3.5 cm. No echogenic obstructive calculus or hydronephrosis is appreciated. Aorta: Visualized aorta mid level predominant measures 1.1 cm.. 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 Portal venous: The portal venous flow velocity is within normal. Intraperitoneal space: No significant interval free fluid is appreciated. No other significant interval changes are appreciated. US/US gall bladder 22364 IMPRESSION: 1. There is some minimal sludge and small gallstone appearance with no interval wall thickening or pericholecystic fluid collections appreciated. Consider hepatobiliary laboratory profile studies. 2. No interval free fluid collections are appreciated.
[2024-07-07 06:57] LABS: Bilirubin Urine Negative (Negative); Blood Urine Negative (Negative); Glucose Urine UA Negative (Normal); Ketones Urine Negative (Negative); Leukocyte Esterase Urine Negative (Negative); Nitrate Urine Negative (Negative); Protein Urine 2+ (Negative); Urine Appearance Cloudy (CLEAR); Urine Color Yellow (Yellow); pH Urine 5.5 (5-7)
[2024-07-07 07:01] LABS: HCG, Serum Qual Negative (Negative)
[2024-07-07 07:02] LABS: Add Urine Microscopic? YES; Bacteria Urine 4+ /hpf; Hyaline Casts Urine 2.46 /lpf; RBC Urine 0-2 /hpf (0-2)
[2024-07-07 07:08] LABS: Alanine Aminotransferase 10 U/L (0-33); Albumin Level 4.3 g/dL (3.5-5.2); Alkaline Phosphatase 120 U/L (35-105); Anion Gap 15.1 (5-19); Aspartate Amino Transferase 16 U/L (0-32); Blood Urea Nitrogen 16 mg/dL (6-20); Calcium 8.6 mg/dL (8.5-10.5); Carbon Dioxide 24 mmol/L (22-29); Chloride 105 mmol/L (98-107); Creatinine Clr Calc Pharmacy 150.5372; Globulin 2.6 g/dL (1.3-4.6); Glomerular Filtration Rate 128.8 mL/min (90-130); Glucose 84 mg/dL (65-115); Osmolality Calculated 290 mOsm/kg (285-295); Potassium 4.1 mmol/L (3.5-5.1); Sodium 140 mmol/L (136-145); Total Bilirubin 0.2 mg/dL (0.15-1.2); Total Protein 6.9 g/dL (6.6-8.7)
[2024-07-07] MEDS: morphine 4 mg/mL SDV 1 mL IVP ×2 (07:15→08:15)
[2024-07-07] MEDS: ondansetron 2 mg/ML SDV 2 mL 4 MG IVP (07:15)
[2024-07-07 07:17] LABS: Specific Gravity, Urine 1.032 (1.005-1.030)
[2024-07-07 07:22] LABS: Lipase 32 U/L (13-60)
--- NOTE | 2024-07-09 09:54 | DCPLANNER ---
messaged gen surg for er f/u, faxed outpatient HIDA order to [facility]
== END 2024-07-07 09:09 | disposition home or self-care (01) ==
PROVIDERS: Emergency Provider Family Medicine; PCP Family Medicine
DX: K80.50 Calculus of bile duct without cholangitis or cholecystitis without obstruction (principal); K82.8 Other specified diseases of gallbladder
CPT/HCPCS: 76705; 80053; 81001; 83690; 84703; 85025; 96374; 96375; 96376; 99285; J2270; J2405

== ENCOUNTER → 2024-07-16 13:32 | Outpatient (BNVA) | payer MEDICAID, SELFPAY | PROVIDERS: PCP Family Medicine; Visit Provider Surgery | DX: K80.20 Calculus of gallbladder without cholecystitis without obstruction (principal) | CPT/HCPCS: 99204 ==

== ENCOUNTER 2024-07-26 07:09 | Day surgery (SDC) | payer MEDICAID, SELFPAY ==
[2024-07-26] VITALS (12 sets, daily range): BP systolic 103–121; BP diastolic 64–84; PULSE 61–90; RESP 14–18; TEMP 36.1–36.6; O2SAT 94–99; BMI 28.3
[2024-07-26 07:56] LABS: OR HCG Qualitative Urine Negative (Negative)
--- NOTE | 2024-07-26 08:25 | W.PM.OPSUD ---
Surgery/Procedure H&P Update DATE OF PROCEDURE: July 26, 2024 DATE H&P PERFORMED: 07/16/24 H&P UPDATE INFORMATION: I have reviewed H&P completed within last 30 days, I have examined patient prior to procedure and No changes to prior documentation PLANNED PROCEDURE: Operation Date: 07/26/24 09:00 Proposed Procedures p Laparoscopic Cholecystectomy - 18200, K80.20(Not Applicable) - Alo Harrison, DO
--- NOTE | 2024-07-26 08:43 | ANES.PREANE2 ---
Pre-Anesthetic Assessment Height/Weight: Height 1.65 m Weight 77.111 kg Temp Pulse Resp BP Pulse Ox O2 Del Method 97.6 F 86 14 113/69 98 Room Air 07/26/24 07:47 07/26/24 07:47 07/26/24 07:47 07/26/24 07:47 07/26/24 07:47 07/26/24 08:01 Operation Date: 07/26/24 09:00 Proposed Procedures p Laparoscopic Cholecystectomy - 05862, K80.20(Not Applicable) - Alo Harrison DO Familial anesthetic complications: None Was Beta Avi taken within 24 hours: N/A Was Clonidine taken within 24 hours: N/A Last intake: Intake Last Liquid Date 07/25/24 Last Liquid Time 20:00 Last Solid Date 07/25/24 Last Solid Time 20:00 Social No alcohol and No tobacco Exam alert, oriented x 3, clear to auscultation bilaterally and regular rate & rhythm Airway Mallampati: Class I Dentition: full Anesthetic Plan ASA status: 1 Anesthesia: General Risk of > 500 ml blood loss (7ml/kg in children): No Medications/Allergies Home Medications Medication Instructions Recorded Confirmed Last Taken Type hydrocodone 5 mg-acetaminophen 325 1 tab PO Q6H PRN pain #25 tabs 07/07/24 07/25/24 07/23/24 Rx mg tablet promethazine 25 mg tablet 25 mg PO DIRECTED 07/25/24 07/25/24 07/23/24 History Allergies Allergy/AdvReac Type Severity Reaction Status Date / Time No Known Allergies Allergy Verified 07/25/24 10:52 PFSH Anesthesia Medical History No pertinent past medical history Neg hx: HTN, DM, Thyroid, DVT/PE PCP: None Surgical History No pertinent past surgical history Family History Father Hypertension Family/Other Thyroid disease Maternal side Denies family history of Colon cancer Ovarian cancer Diabetes Breast cancer Cancer Uterine cancer Stroke Social History Smoking and tobacco/nicotine status: never used tobacco/nicotine Alcohol intake: never Data Anesthesia Cardiac Studies: No Data to Display
[2024-07-26] MEDS: sodium chloride 0.9% 1,000 ML 30 ML IV (09:00)
[2024-07-26] MEDS: ceFAZolin 2,000 mg SDV 2000 MG IVP (09:13)
[2024-07-26] MEDS: lidocaine-epi 2% PF 1:200,000 20 mL SDV XX (09:51)
--- NOTE | 2024-07-26 09:56 | P.OP_ITS ---
Operative Report Date of procedure: July 26, 2024 Surgeon: Alo Harrison DO Brief History: This is a very pleasant 18-year-old female presented to my office with abdominal pain. She was diagnosed with symptomatic cholelithiasis. Laparoscopic cholecystectomy was indicated. The risks and benefits were explained and documented Procedure: Preoperative diagnosis: Symptomatic cholelithiasis Postoperative diagnosis: Same Procedure performed: Laparoscopic cholecystectomy Surgeon: Dr. Alo Harrison DO Estimated blood loss: 5 mL Specimens: Gallbladder to pathology Complications: None apparent Description of procedure: Patient was wheeled into the operative room and placed on the OR table in a supine position. Abdomen was inspected prepped and draped in usual sterile fashion. Time-out was performed and all present were in agreement. A 15 blade scalp was used to make a stab incision in the left upper quadrant and intra- abdominal insufflation was achieved using a Veress needle. After localizing the tissue incisions were made and a 5 millimeter trocar was placed into the umbilicus as well as 2 in the right upper quadrant. A 12 millimeter trocar was placed in the epigastrium. Gallbladder was grasped and elevated. The triangle of Calot was carefully dissected using blunt dissection and electrocautery until the triangle of Calot clearly identified. The cystic duct was clipped proximally and double clipped distally. The duct was then ligated proximally. The cystic artery was doubly clipped and ligated. The gallbladder was then removed from the liver bed using electrocautery. The gallbladder was removed from the abdomen using an Endo-Catch bag through the epigastric incision. The liver bed was inspected and no bleeding was seen. The abdomen was irrigated and suctioned. All ports removed. Skin was washed and dried. Incisions were closed with 4-0 Monocryl in a subcuticular interrupted fashion. Skin glue was applied. Patient tolerated the procedure well.
[2024-07-26] MEDS: fentaNYL 50 mcg/mL INJ 2mL IVP ×2 (10:20→10:45)
--- NOTE | 2024-07-26 12:15 | ANE.PACU2 ---
Inpatient post-anesthesia follow up: Airway intact: Yes Vital signs: Temperature 97.9 F Pulse Rate 68 Respiratory Rate 16 Blood Pressure 114/79 Pulse Oximetry 99 Oxygen Delivery Me thod Room Air Oxygen Flow Rate Fraction of Inspir ed Oxygen Hydration adequate: Yes Nausea and vomiting: No Pain level: 1 Mental status: Baseline
== END 2024-07-26 12:15 | disposition home or self-care (01) ==
PROVIDERS: Anesthesiology; PCP Family Medicine; Visit Provider Surgery
PROC: 0FT44ZZ Resection of Gallbladder, Percutaneous Endoscopic Approach (ICD-10-PCS; CPT 47562; principal; 2024-07-26 09:00)
DX: K80.10 Calculus of gallbladder with chronic cholecystitis without obstruction (principal)
CPT/HCPCS: 47562; 81025; 88304; J0690; J1100; J1200; J1885; J2250; J2405; J2704; J3010; J3490; J7030

== ENCOUNTER → 2024-08-10 08:06 | Outpatient (BNVA) | payer MEDICAID, SELFPAY | PROVIDERS: PCP Family Medicine; Visit Provider Surgery | DX: Z90.49 Acquired absence of other specified parts of digestive tract (principal); Z98.890 Other specified postprocedural states | CPT/HCPCS: 99024 ==

== ENCOUNTER 2025-05-04 12:16 | Emergency (ER) | payer MEDICAID, SELFPAY ==
[2025-05-04 12:22] VITALS: BP 102/61; PULSE 68; RESP 17; TEMP 36.8; O2SAT 99; BMI 26.9
[2025-05-04 13:43] VITALS: BP 100/62; PULSE 72; O2SAT 99
--- NOTE | 2025-05-04 14:07 | ED_ITS ---
HPI - Headache General: Chief Complaint: Headache Stated Complaint: preg 9 weeks dizzy left side numbness Time Seen by Provider: 05/04/25 12:39 History of Present Illness: Patient now is , had a headache today. Does not normally have headaches. The pain is severe. Tylenol has not helped it. Patient is not allergic to any other medications. Reports it is making her dizzy and that is better expresses a lightheadedness. No vertiginous symptoms. No vision changes. No fever. No neck pain. Did have transient left-sided numbness prior to arrival that has resolved. Related Data Home Medications ?Medication ?Instructions ?Recorded ?Confirmed acetaminophen 500 mg tablet 500 mg PO Q6H PRN Fever 05/04/25 (Tylenol Extra Strength) vits 168-iron 27 mg-folic 1 cap PO DAILY 04/0705/04/25 acid 800 mcg-omega3 235 mg capsule (One-A-Day -1) Allergies Allergy/AdvReac Type Severity Reaction Status Date / Time No Known Allergies Allergy Verified 08/10/24 08:09 Review of Systems General: Reports: 10 or more systems reviewed and unremarkable except in HPI and below PFSH ED PFSH: Medical History (Updated 05/04/25 @ 14:41 by Zain Saucedo MD) No pertinent past medical history Neg hx: HTN, DM, Thyroid, DVT/PE PCP: None Surgical History (Updated 08/10/24 @ 09:03 by Alo Harrison DO) History of laparoscopic cholecystectomy 07/26/24 Dr Harrison No pertinent past surgical history Family History Father Hypertension Family/Other Thyroid disease Maternal side Denies family history of Colon cancer Ovarian cancer Diabetes Breast cancer Cancer Uterine cancer Stroke Social History Smoking and tobacco/nicotine status: never used tobacco/nicotine Alcohol intake: never Physical Exam Const: COMMON NORMALS: no acute distress, average body habitus, patient oriented x3, healthy appearing, alert and well nourished GENERAL APPEARANCE: well kempt and well developed HENMT: COMMON NORMALS: normocephalic, atraumatic, external ears normal and moist oral mucous membranes HEAD & SCALP: normocephalic and atraumatic EXTERNAL EAR: Yes external ears normal Eye: COMMON NORMALS: Equal, round and reactive pupils present, EOMs intact bilaterally and conjunctivae normal CONJUNCTIVA: Yes conjunctivae normal PUPIL: Yes Equal, round and reactive pupils present Neck/C-Spine: COMMON NORMALS: full ROM, no lymphadenopathy and supple Chest: CHEST: Yes Symmetrical chest wall rise and No Surgical scars present (Chest) Resp: COMMON NORMALS: normal respiratory effort, No retractions, No use of accessory muscles and clear to auscultation bilaterally AUSCULTATION: clear to auscultation bilaterally Cardio: COMMON NORMALS: regular rate, regular rhythm, S1 normal heart sound present, S2 normal heart sound present, No gallops present (Cardio), No clicks present (Cardio), No murmurs present (Cardio) and No rub (Cardio) RATE: regular rate RHYTHM: regular rhythm HEART SOUNDS: S1 normal heart sound present, S2 normal heart sound present and no murmurs PERIPHERAL PULSES: other (Radial pulses 2+ and symmetric) GI: COMMON NORMALS: Soft to palpation, non-tender and no masses INSPECTION: No abdominal distension PALPATION: Yes Soft to palpation, No Guarding due to palpation present (GI) and No Rebound tenderness present : COMMON NORMALS: Yes no CVA tenderness BLADDER/KIDNEY EXAM: Yes no CVA tenderness Back/Pelvis: COMMON NORMALS: no CVA tenderness Extremity: COMMON NORMALS: normal to inspection, full ROM, capillary refill normal and no clubbing, cyanosis or edema Neuro: COMMON NORMALS: patient oriented x3 SENSORIUM/ORIENTATION: Yes alert Psych: APPEARANCE: Yes well kempt Skin: COMMON NORMALS: no rashes or lesions noted, no wounds, turgor normal and no jaundice GENERAL SKIN EXAM: no rashes or lesions noted and turgor normal Course Vital Signs: Vital signs: Vital Signs Temperature 98.2 F 05/04/25 12:22 Pulse Rate 81 05/04/25 14:59 Respiratory Rate 17 05/04/25 12:22 Blood Pressure 106/61 05/04/25 14:59 Pulse Oximetry 99 05/04/25 14:59 Oxygen Delivery Me thod Room Air 05/04/25 13:43 MDM - Headache Medical Decision Making Pt in first trimester of . doesn't have routine migraines. pt reports severe GRAHAM with dizzyness that is better described as lightheadedness. did have a transient L arm numbness prior to arrival that was a few mintues and compltelely resolved. no speech deficits. No L leg numbness. no facial droop. Pt was given ketorolac (as we are <20 wks), compazine and decadron. Pt reports good relief. Medical Records I reviewed the patient's medical records. No radiology studies performed this visit Discharge Plan Discharge Patient Disposition: Home Clinical Impression: Headache, Light-headed feeling, First trimester Condition: Stable Prescriptions: No Action acetaminophen [Tylenol Extra Strength] 500 mg Tablet 500 mg PO Q6H PRN (Reason: Fever) One-A-Day -1 27 mg iron- 800 mcg-235 mg Capsule 1 cap PO DAILY Discharge Orders: Discharge ED (Routine); Ordered 05/04/25 Ordered By: Zain Suacedo Referrals: Keira Alanis MD [Primary Care Provider, Family Practice] Patient Instructions: at 7 to 10 Weeks (ED), Patient Portal & Ld Instructions Activity Restrictions/Additional Instructions: Return Precautions: The following symptoms may indicate a more serious underlying condition and require immediate medical attention: ? Sudden onset of the worst headache of your life ? Headache associated with fever, neck stiffness, confusion, vision changes, weakness, numbness, difficulty speaking, or loss of consciousness ? Persistent vomiting or inability to tolerate fluids ? Severe headache that does not improve with rest or prescribed medications ? New onset of high blood pressure, swelling, or visual disturbances (possible preeclampsia) ? Any vaginal bleeding, severe abdominal pain, or signs of miscarriage Medication Guidance: ? Acetaminophen is considered first-line for headache in and may be used as needed, but use should be judicious and not exceed recommended dosing (maximum 3,000 mg per 24 hours).[2-3][6-8] ? NSAIDs (such as ketorolac) are generally avoided after the first trimester due to risks, but short-term use in the first trimester is considered acceptable in select cases.[3-4][8] ? Prochlorperazine is unlikely to be harmful in and may be used for refractory nausea or headache.[8] ? Dexamethasone and other corticosteroids may be considered for severe, refractory cases, but should not be used routinely.[4] ? Avoid use of ergot derivatives, butalbital-containing products, and opioids unless specifically directed by a specialist.[2-5][8] Hydration and Nutrition Guidance (First Trimester): ? Maintain adequate hydration: Aim for at least 8-10 cups (64-80 ounces) of fluids daily, primarily water. Increase intake if experiencing vomiting or diarrhea.[7] ? Eat small, frequent meals to help prevent nausea and maintain stable blood sugar. Include a balance of complex carbohydrates, lean protein, fruits, and vegetables. ? vitamins with folic acid should be continued as prescribed. ? Avoid known headache triggers (e.g., dehydration, fasting, certain foods, excessive caffeine). ? Limit caffeine to less than 200 mg per day (about one 12-oz cup of coffee), as recommended in . ? If experiencing persistent nausea, vitamin B6 (pyridoxine) and jose are considered safe and effective.[6-7] Non-Pharmacologic Strategies: ? Rest in a quiet, dark room during headache episodes. ? Use cold compresses to the forehead or neck. ? Practice relaxation techniques such as deep breathing, gentle stretching, or mindfulness, which are supported as adjunctive therapy for headache in .[3][8-9] ? Maintain regular sleep patterns and avoid sleep deprivation. Follow-Up: ? Continue routine care and follow up with the melter supervisor [employer] [facility] as scheduled. ? If headaches become more frequent, severe, or are associated with neurological symptoms, further evaluation may be warranted to rule out secondary causes (e.g., preeclampsia, vascular events).[2][5] Summary of Medication Safety: ? Acetaminophen: Preferred first-line agent for headache in .[2-3][6-8] ? NSAIDs: Use with caution in first trimester only; avoid in later .[3- 4][8] ? Prochlorperazine: Acceptable for refractory cases.[8] ? Dexamethasone: [place] for severe, refractory cases.[4] ? Avoid ergot derivatives, butalbital, and opioids unless directed by a special ist.[2-5][8] For any questions or concerns, contact the melter supervisor [employer] or return to the emergency department as indicated above. References Headache in and the [employer]. https://pubmed.ncbi.nlm.nih.gov/45013804 Warren Lim. Neurologic Clinics. 2019;37(1):31-51. doi:10.1016/j.ncl.2018.09.004.Pharmacological Treatment of Migraine During and . https://pubmed.ncbi.nlm.nih.gov/27903388 Elke S, Efe H, Schuyler?- Nadeen K, Fabián MARIE, Malik O. Nature Reviews. Neurology. 2015;11(4):209- 19. doi:10.1038/nrneurol.2015.29.Hiwk-fih-Hmjqvvh Medications in . https://pubmed.ncbi.nlm.nih.gov/25846070 Robert ELLIS, Nicko R, Emily M. Palestinian Family Physician. 2022;108(4):360-369.The Patient: Managing Common Acute Medical Problems. https://pubmed.ncbi.nlm.nih.gov/13617619 Ariel BELTRAN, Zelaya V, Murtaza P. Palestinian Family Physician. 2018;98(9):595-602.Migraine in : What Are the Safest Treatment Options?. https://pubmed.ncbi.nlm.nih.gov/2274339 Vilma Eagle, Mercedez M. Drug Safety. 1998;19(5):383-8. doi:10.2165/60398670-675974524-67088.Migraine in . https://pubmed.ncbi.nlm.nih.gov/24682955 Aub? M. Neurology. 1999;53(4 Suppl 1):S26-8.Headaches in and : ACOG Clinical Practice Guideline No. 3. https://doi.org/10.1097/AOG.0240643919503876 Obstetrics and Gynecology. 2021;139(5):944-972. doi:10.1097/AOG.7421561255360501.Diagnosis and Management of Headache: A Review. https://jamanetwork.com/journals/georges/fullarticle/10.1001/georges.2021.1640?utm_sou rce=openevidence&utm_medium=referral Conrado VALADEZ. GEORGES. 2020;325(18):1244-7271. doi:10.1001/georges.2021.1640. Print Language: Hungarian Coding Level of Care Code ED Saxophone Player for Bartolog Anthony
[2025-05-04 14:59] VITALS: BP 106/61; PULSE 81; O2SAT 99
== END 2025-05-04 15:00 | disposition home or self-care (01) ==
PROVIDERS: Emergency Provider Emergency Medicine; PCP Family Medicine
DX: O26.891 Other specified pregnancy related conditions, first trimester (principal); R51.9 Headache, unspecified; R42 Dizziness and giddiness; Z3A.09 9 weeks gestation of pregnancy
CPT/HCPCS: 96361; 96374; 96375; 99284; J0780; J1100; J1885; J7030